=== PATIENT | female | born 1985 | race Caucasian/White ===

== ENCOUNTER 2019-09-21 13:21 | Observation (INO) | payer OTHER, BC, SELFPAY ==
--- NOTE | 2019-09-21 13:15 | PC.NURSE ---
Report called to KIRA Delcid in OB. Pt taken to OB department via Wheelchair by KIRA.
[2019-09-21 13:30] VITALS: BMI 36.9
[2019-09-21 13:45] VITALS: BP 116/76; PULSE 78
[2019-09-21 14:00] VITALS: BP 114/62; PULSE 90
[2019-09-21 14:06] LABS: Add Urine Microscopic? NO; Appearance Urine Clear (Clear); Bilirubin Urine Negative (Negative); Blood Urine Negative (Negative); Color Urine Straw (Yellow); Glucose Urine UA Negative (Negative); Ketones Urine Negative (Negative); Leukocyte Esterase Ur Negative LEU/UL (NEGATIVE); Nitrate Urine Negative (Negative); Protein Urine Negative (Negative); Urobilinogen Urine Negative mg/dL (<2.0)
[2019-09-21 14:15] VITALS: BP 109/70; PULSE 83
--- NOTE | 2019-09-21 14:53 | OBADM ---
This patient, Lisa Bailey, admitted to the OB room OB Post 116 for observation. Patient/family oriented to hospital policies and general routines including ID bracelet, bed and alarms, visiting hours, pain management, procedures, bathroom and other care routines, personal items, smoking policy, room service/diet, and visiting hours. Patient/Family are encouraged to report perceived risks to care and to ask questions if they do not understand what they are told or what they should do.
--- NOTE | 2019-09-25 06:32 | P.PNOB_ITS ---
OB - Triage/Final Diagnosis Evaluation Laboratory results: Laboratory Tests 09/21/19 13:56 Urine Color Straw Urine Appearance Clear Urine pH 7.0 Ur Specific [place] 1.010 Urine Protein Negative Urine Glucose (UA) Negative Urine Ketones Negative Ur Blood (Man) Negative Urine Nitrate Negative Urine Bilirubin Negative Urine Urobilinogen Negative Ur Leukocyte Esterase Negative Final Diagnosis (1) Musculoskeletal pain: Code(s): M79.18 - Myalgia, other site Status: Acute
== END 2019-09-21 14:50 | disposition home or self-care (01) ==
PROVIDERS: Admitting Provider Obstetrics & Gynecology; PCP Internal Medicine; Visit Provider Obstetrics & Gynecology
DX: O26.892 Other specified pregnancy related conditions, second trimester (principal); R10.9 Unspecified abdominal pain; Z3A.25 25 weeks gestation of pregnancy
CPT/HCPCS: 81003; 87086; 87088; G0378; G0379

== ENCOUNTER 2019-12-28 00:01 | Inpatient (IN) | payer OTHER, BC, SELFPAY ==
[2019-12-28] VITALS (115 sets, daily range): BP systolic 106–161; BP diastolic 45–129; PULSE 67–100; TEMP 36.7–37.4; O2SAT 97–100; BMI 39.2
--- NOTE | 2019-12-28 00:22 | LDADM ---
This patient, Lisa Bailey, was admitted to Labor/Delivery/Recovery 103 on 12/28/19 at 00:01. Plans for labor, pain management and were discussed with patient. Patient/family oriented to hospital policies and general routines including ID bracelet, bed and alarms, visiting hours, pain management, procedures, bathroom and other care routines, personal items, smoking policy, room service/diet and guest tray routines, security routines, and visiting hours. Patient/Family are encouraged to report perceived risks to care and to ask questions if they do not understand what they are told or what they should do. See OBIX for further documentation.
[2019-12-28] MEDS: DINOPROSTONE 10 MG VAG INSERT VAGINAL (00:50)
[2019-12-28 01:03] LABS: Glucose Point of Care 86 (65-105)
[2019-12-28 01:07] LABS: Basophils Percent Auto 0.2 % (0.2-1.2); Eosinophils Absolute Auto 0.1 K/mm3 (0-0.3); Eosinophils Percent Auto 0.8 % (0-4.4); Hematocrit 35.9 % (37.0-47.0); Hemoglobin 12.6 g/dL (12.0-15.0); Immature Granulocyte Absolute 0.03 K/mm3 (0.00-0.031); Immature Granulocyte Percent A 0.3 % (0-0.5); Lymphocytes Absolute Auto 2.22 K/mm3 (0.9-3.2); Lymphocytes Percent Auto 25.6 % (18.3-44.2); Mean Corpuscular HGB Conc 35.1 g/dl (32-36); Mean Corpuscular Hemoglobin 31.1 pg (26-34); Mean Corpuscular Volume 88.6 fl (80-100); Mean Platelet Volume 11.4 fl (7.4-10.4); Monocytes Absolute Auto 0.8 K/mm3 (0.1-0.6); Monocytes Percent Auto 8.8 % (2.6-8.5); Neutrophils Absolute Auto 5.6 K/mm3 (1.3-6.7); Neutrophils Percent Auto 64.3 % (45.5-73.1); Platelet Count Result 208 k/mm3 (150-375); Red Blood Count 4.05 M/mm3 (4.2-5.4); Red Cell Distribution Width 12.7 % (11.5-14.5); White Blood Count 8.7 K/mm3 (4.5-10.0)
[2019-12-28 03:23] LABS: Hepatitis B Surface Antigen Negative (Negative)
[2019-12-28 03:25] LABS: Rubella IgG Antibody 15.4 IU/ML
--- NOTE | 2019-12-28 06:59 | WPDANESEPP ---
Anes - Eval Pre Procedure Procedure: labor epidural Date/Time: 12/28/19 06:59 Preop Diagnosis: labor epidural Pre Op Diagnosis: IOL Patient Data Age: 34 Gender: F Height: 5 ft 9 in Weight: 120.5 kg Last Vital Signs Temp 36.8 C 12/28/19 04:41 Pulse 81 12/28/19 06:46 BP 128/89 12/28/19 06:46 Allergies Allergy/AdvReac Type Severity Reaction Status Date / Time No Known Allergies Allergy Verified 12/06/19 13:43 Home Medications Medication Instructions Recorded Confirmed Type enoxaparin [Lovenox] 1 09/21/19 History levothyroxine [Synthroid] 75 mcg PO DAILY 09/21/19 12/28/19 History biotin-keratin 1 tablet PO 12/06/19 History cholecalciferol (vitamin D3) 125 mcg PO DAILY 12/06/19 12/28/19 History [Vitamin D3] cyanocobalamin (vitamin B-12) 1,000 mcg PO DAILY 12/06/19 12/28/19 History [Vitamin B-12] folic acid 0.8 mg PO DAILY MDD TAKES 2 12/06/19 12/28/19 History TABLETS DAILY loratadine [Claritin] 10 mg PO DAILY 12/06/19 12/28/19 History metformin 500 mg PO DAILY 12/06/19 12/28/19 History ffhhiezokqrf-tvgo-jaqip acid 1 tablet PO DAILY 12/06/19 12/28/19 History [Daily Multivitamin with Iron] heparin, porcine (PF) 12/28/19 History Laboratory Tests 12/28/19 12/28/19 12/28/19 00:44 00:44 00:44 WBC 8.7 K/mm3 K/mm3 (4.5-10.0) RBC 4.05 M/mm3 L M/mm3 (4.2-5.4) Hgb 12.6 g/dL g/dL (12.0-15.0) Hct 35.9 % L % (37.0-47.0) MCV 88.6 fl fl (80-100) MCH 31.1 pg pg (26-34) MCHC 35.1 g/dl g/dl (32-36) RDW 12.7 % % (11.5-14.5) Plt Count 208 k/mm3 k/mm3 (150-375) MPV 11.4 fl H fl (7.4-10.4) Immature Gran % (Auto) 0.3 % % (0-0.5) Neut % (Auto) 64.3 % % (45.5-73.1) Lymph % (Auto) 25.6 % % (18.3-44.2) [place] % (Auto) 8.8 % H % (2.6-8.5) Eos % (Auto) 0.8 % % (0-4.4) Baso % (Auto) 0.2 % % (0.2-1.2) Lymph # (Auto) 2.22 K/mm3 K/mm3 (0.9-3.2) [place] # (Auto) 0.8 K/mm3 H K/mm3 (0.1-0.6) Eos # (Auto) 0.1 K/mm3 K/mm3 (0-0.3) Baso # (Auto) 0.0 K/mm3 K/mm3 (0.0-0.1) Abs Immat Gran (auto) 0.03 K/mm3 K/mm3 (0.00-0.031) Absolute Neuts (auto) 5.6 K/mm3 K/mm3 (1.3-6.7) Absolute Nucleated RBC 0.0 K/mm3 K/mm3 (0.0-0.012) Nucleated RBC % 0.0 % % (0.0-0.2) POC Capillary Glucose RPR Pending Hep Bs Antigen Rubella IgG Antibody 15.4 IU/ML IU/ML (10 - ) Blood Type Antibody Screen 12/28/19 12/28/19 12/28/19 00:44 00:44 00:47 WBC RBC Hgb Hct MCV MCH MCHC RDW Plt Count MPV Immature Gran % (Auto) Neut % (Auto) Lymph % (Auto) [place] % (Auto) Eos % (Auto) Baso % (Auto) Lymph # (Auto) [place] # (Auto) Eos # (Auto) Baso # (Auto) Abs Immat Gran (auto) Absolute Neuts (auto) Absolute Nucleated RBC Nucleated RBC % POC Capillary Glucose 86 mg/dl mg/dl (65-105) RPR Hep Bs Antigen Negative (Negative) Rubella IgG Antibody Blood Type A Positive Antibody Screen Negative Patient hx anesthesia problems: none Family hx anesthesia problems: none PMFSH Past Medical History Medical History (Updated 09/25/19 @ 06:33 by Reymundo Mosquera MD) Musculoskeletal pain Family History Family History (Updated 12/06/19 @ 13:58 by Anna Zurita RN) Father High cholesterol Hypertension Mother High cholesterol Hypertension Grandparent Cerebrovascular accident Social History Social History Smoking status: Never smoker
[2019-12-28 07:18] LABS: Glucose Point of Care 81 (65-105)
[2019-12-28 07:34] LABS: Alanine Aminotransferase 26 U/L (4-35); Albumin Level 3.4 g/dL (3.5-5.1); Alkaline Phosphatase 107 U/L (38-126); Anion Gap 5 mmol/L (8-16); Aspartate Amino Transferase 28 U/L (14-36); Bilirubin,Total 0.4 mg/dL (0.2-1.3); Blood Urea Nitrogen 10 mg/dL (7-17); Calcium 8.7 mg/dL (8.4-10.2); Carbon Dioxide 21 mmol/L (22-30); Chloride 105 mmol/L (98-107); Estimated CRCL calculation 157 ml/min; Estimated Glomerular Filt Rate > 60; Glucose 84 mg/dL (65-105); Potassium 3.9 mmol/L (3.4-5.0); Sodium 131 mmol/L (137-145); Uric Acid 5.7 mg/dL (2.5-7.5)
[2019-12-28 09:37] LABS: Rapid Plasma Reagin Non-Reactive (NonReactive)
[2019-12-28] MEDS: fentaNYL CITRATE INJ (*CRX) 100 MCG/2 ML VIAL 50 MCG IV PUSH (10:16)
[2019-12-28 11:19] LABS: Glucose Point of Care 83 (65-105)
[2019-12-28 13:00] LABS: Glucose Point of Care 61 (65-105)
[2019-12-28 14:13] LABS: Glucose Point of Care 120 (65-105)
--- NOTE | 2019-12-28 17:13 | WPDOBADMIT ---
Obstetrics - Admit Note Admission Note: patient c/70/ -2. continue with cytotec 25 q 4 hrs. record reviewed. No pertinent additions to the history and/or any subsequent changes in the physical findings that are not consistent with the expected course of the were found. Additions to the history and/or subsequent changes in the physical findings follow. None.
[2019-12-28] MEDS: miSOPROStol 25 MCG TABLET VAGINAL (18:13)
[2019-12-28 18:18] LABS: Glucose Point of Care 67 (65-105)
[2019-12-28] MEDS: LACTATED RINGERS 1,000 ML 125 ML IV CONT (22:57)
[2019-12-28 23:03] LABS: Glucose Point of Care 85 (65-105)
--- NOTE | 2019-12-28 23:03 | WPDANESEFPP ---
Anes - Eval Final PreProcedure Day of Procedure 12/28/19 23:03 Patient weight: morbidly obese Neurological: alert and oriented ASA classification: III Emergent: no Anesthetic plan: proceed Anesthesia type and monitoring: regional epidural and standard monitoring Informed Consent: The patient's anesthetic plan and its attendant risks and benefits were discussed with the patient/family/POA. Questions were solicited and answers provided to the satisfaction of the patient/family/POA.
[2019-12-29] VITALS (101 sets, daily range): BP systolic 122–154; BP diastolic 21–92; PULSE 67–119; RESP 12–18; TEMP 36.6–37.1; O2SAT 95–100
[2019-12-29 02:00] LABS: Glucose Point of Care 74 (65-105)
--- NOTE | 2019-12-29 07:02 | P.PCNOB_ITS ---
OB - Delivery Note Procedure Delivery date: 12/29/19 events: Gestational Diabetes and Labor Induction Induction method: per misoprostol protocol and other Delivery monitor: external FHT and external uterine Route of delivery: Laceration description: Perineal - 2nd Degree Delivery repair: vicryl Specimen: Yes Estimated blood loss (mL): 450 Anesthesia type: Epidural Disposition: observation [place] Baby Date of : 12/29/19 Time of : 06:23 Weeks of gestation at delivery: 39 Infant gender: Female Weight (pounds): 7 Weight (ounces): 14 presentation: vertex position: Left Occiput Anterior Placenta delivery description: Spontaneous cord vessel description: 3 Vessels score one minute: 8 score five minutes: 9
[2019-12-29] MEDS: OXYTOCIN 30 UNITS/NS 500 ML 30 UNITS/500 ML BAG 125 UNITS IV CONT (07:26)
[2019-12-29] MEDS: LEVOTHYROXINE SODIUM 75 MCG TABLET PO (07:29)
[2019-12-29] MEDS: WITCH HAZEL 40 PADS 1 PAD TOPICAL (08:27)
[2019-12-29] MEDS: BENZOCAINE 20% AER SPR (*SP) 56 GM CAN 1 SPRAY TOPICAL (08:27)
--- NOTE | 2019-12-29 09:43 | OBPPTRN ---
Patient transferred to post room # 291 via wheelchair. Support person present. Oriented to unit, room, information board, rooming in, admission packet and security measures. Patient verbalizes understanding.
--- NOTE | 2019-12-29 11:30 | PC.NURSE ---
Consulted with patient, mother reports infant eagerly fed for first feeding. Reviewed feeding cues, frequencies, duration of feedings, feeding elimination flow sheet, and signs of adequate intake. Demonstrated stimulation techniques to wake infant for feeding. Assisted with infant to breast. Reviewed positioning/alignment in football, holding breast in C hold and guided asymmetrical latch on. was able to latch correctly. nursed eagerly, with steady draws and frequent swallowing noted. Reviewed signs of a correct latch, effective nursing and suck swallow ratio. was able to maintain latch without discomfort to mother. Nipple care reviewed. Suggested mother stimulate while feeding to keep awake and nursing effectively for increased intake and to assist with maintaining deep latch. Demonstrated how to adjust latch more deeply while feeding. Instructed mother to call out for RN assistance if she is unable to latch infant for feeding or she has discomfort with nursing. Instructed feeding should be initiated three hours from start of last feeding or if feeding cues are noted before. Mother voiced understanding of information shared.
[2019-12-29 11:40] LABS: Glucose Point of Care 84 (65-105)
[2019-12-29] MEDS: IBUPROFEN 600 MG TABLET PO (14:56)
[2019-12-29] MEDS: ENOXAPARIN 40 MG/0.4 ML SYRINGE SUB-Q (19:19)
[2019-12-30 05:27] LABS: Hemoglobin 9.9 g/dL (12.0-15.0)
[2019-12-30] MEDS: IBUPROFEN 600 MG TABLET PO ×4 (07:23→22:57)
[2019-12-30] MEDS: LEVOTHYROXINE SODIUM 75 MCG TABLET PO (07:23)
[2019-12-30 08:30] VITALS: BP 118/76; PULSE 65; RESP 18; TEMP 36.7
--- NOTE | 2019-12-30 09:30 | PM.OBPNVD ---
OB - PN: Subj Subjective Date/time seen: 12/30/19 09:30 Doing okay mild headache improved with ibuprofen and fiorocet OB - PN: Obj Data Labs CBC & Chem 7: 12/30/19 03:36 12/28/19 07:12 Labs: Laboratory Results - last 24 hr 12/29/19 12/30/19 03:03 03:36 Hgb 9.9 L Hct 30.0 L POC Capillary Glucose 84 OB - PN A/P Assessment and Plan (1) (normal spontaneous vaginal delivery): Code(s): O80 - Encounter for full-term uncomplicated delivery Status: Acute Assessment and Plan: doing okay no complaints (2) History of DVT of lower extremity: Code(s): Z86.718 - Personal history of other venous thrombosis and embolism Status: Acute Assessment and Plan: continue with lovenox daily (3) Hypothyroid: Code(s): E03.9 - Hypothyroidism, unspecified Status: Acute Time Spent With Patient Time: Total time spent is greater than 50% in coordination of care (as documented) at patient's floor/unit and/or counseling patient: Exam GI: Other: ff below umbilicus no calf tenderness bilateral edema
[2019-12-30] MEDS: MULTIVIT/MIN/PREN/FOL AC/IRON TABLET 1 TAB PO (10:10)
[2019-12-30] MEDS: DOCUSATE SODIUM 100 MG CAPSULE PO ×2 (10:11→16:38)
[2019-12-30] MEDS: POLYSACCHARIDE IRON COMPLEX 150 MG CAPSULE PO ×2 (10:11→16:38)
--- NOTE | 2019-12-30 10:54 | WPDANLDPN2 ---
Anes-Prog Note L&D Date/Time: 12/30/19 10:54 Comfortable throughout: labor and delivery Neuraxial method: epidural Epidural/Spinal procedure site: clean & non-tender Neuro status: Neuro function grossly intact. Cardiovascular status: normal Respiratory status: normal Airway patency: baseline Mental status: baseline Post-Op hydration status: normal Vital Signs: Last Vital Signs Temp 36.7 C 12/30/19 08:30 Pulse 65 12/30/19 08:30 Resp 18 12/30/19 08:30 BP 118/76 12/30/19 08:30 Pulse Ox 98 12/29/19 09:50 Pain score (VAS): o/o Post-procedural complaints: none Patient feedback: Patient satisfied with anesthetic care.
[2019-12-30] MEDS: ENOXAPARIN 40 MG/0.4 ML SYRINGE SUB-Q (19:11)
[2019-12-30 19:15] VITALS: BP 140/80; PULSE 82; RESP 16; TEMP 37.2
[2019-12-31] MEDS: LEVOTHYROXINE SODIUM 75 MCG TABLET PO (07:30)
[2019-12-31 07:45] VITALS: BP 151/90; PULSE 62; RESP 18; TEMP 36.3
[2019-12-31] MEDS: DOCUSATE SODIUM 100 MG CAPSULE PO (07:46)
[2019-12-31] MEDS: POLYSACCHARIDE IRON COMPLEX 150 MG CAPSULE PO (07:46)
[2019-12-31] MEDS: IBUPROFEN 600 MG TABLET PO (07:46)
[2019-12-31] MEDS: MULTIVIT/MIN/PREN/FOL AC/IRON TABLET 1 TAB PO (07:46)
--- NOTE | 2019-12-31 09:56 | PM.OBPNVD ---
OB - PN: Subj Subjective Date/time seen: 12/31/19 09:56 doing well headaches improved no calf pain bleeding improve OB - PN: Obj Data Labs CBC & Chem 7: 12/30/19 03:36 12/28/19 07:12 OB - PN A/P Assessment and Plan (1) (normal spontaneous vaginal delivery): Code(s): O80 - Encounter for full-term uncomplicated delivery Status: Acute Assessment and Plan: bps labile check pih labs. if normal will d/c home with bp check in 1 week. Time Spent With Patient Time: Total time spent is greater than 50% in coordination of care (as documented) at patient's floor/unit and/or counseling patient: Exam GI: Other: ff below umbiilicus
[2019-12-31 10:25] LABS: Basophils Percent Auto 0.3 % (0.2-1.2); Eosinophils Absolute Auto 0.2 K/mm3 (0-0.3); Eosinophils Percent Auto 1.9 % (0-4.4); Hematocrit 29.6 % (37.0-47.0); Hemoglobin 9.8 g/dL (12.0-15.0); Immature Granulocyte Absolute 0.06 K/mm3 (0.00-0.031); Immature Granulocyte Percent A 0.6 % (0-0.5); Lymphocytes Absolute Auto 1.69 K/mm3 (0.9-3.2); Lymphocytes Percent Auto 17.6 % (18.3-44.2); Mean Corpuscular HGB Conc 33.1 g/dl (32-36); Mean Corpuscular Hemoglobin 29.5 pg (26-34); Mean Corpuscular Volume 89.2 fl (80-100); Mean Platelet Volume 10.1 fl (7.4-10.4); Monocytes Absolute Auto 0.6 K/mm3 (0.1-0.6); Neutrophils Absolute Auto 7.1 K/mm3 (1.3-6.7); Neutrophils Percent Auto 73.6 % (45.5-73.1); Platelet Count Result 170 k/mm3 (150-375); Red Blood Count 3.32 M/mm3 (4.2-5.4); White Blood Count 9.6 K/mm3 (4.5-10.0)
[2019-12-31 10:38] LABS: Potassium 3.9 mmol/L (3.4-5.0)
[2019-12-31 10:42] LABS: Alanine Aminotransferase 21 U/L (4-35); Alkaline Phosphatase 64 U/L (38-126); Anion Gap 5 mmol/L (8-16); Aspartate Amino Transferase 27 U/L (14-36); Bilirubin,Total 0.2 mg/dL (0.2-1.3); Blood Urea Nitrogen 9 mg/dL (7-17); Calcium 8.5 mg/dL (8.4-10.2); Carbon Dioxide 27 mmol/L (22-30); Chloride 107 mmol/L (98-107); Estimated CRCL calculation 137 ml/min; Estimated Glomerular Filt Rate > 60; Glucose 101 mg/dL (65-105); Sodium 139 mmol/L (137-145); Uric Acid 6.1 mg/dL (2.5-7.5)
[2019-12-31 11:25] VITALS: BP 148/91
[2020-01-03 08:40] VITALS: BP 149/94; PULSE 66; RESP 20; O2SAT 98
--- NOTE | 2020-01-10 16:31 | PM.OBDSVD ---
DS: Admitting Diagnosis Admitting Diagnosis Admitting Diagnosis: IOL DS: Discharge Diagnosis Discharge Diagnosis (1) (normal spontaneous vaginal delivery): Code(s): O80 - Encounter for full-term uncomplicated delivery Status: Acute (2) History of DVT of lower extremity: Code(s): Z86.718 - Personal history of other venous thrombosis and embolism Status: Acute (3) Hypothyroid: Code(s): E03.9 - Hypothyroidism, unspecified Status: Acute OB - DS: Summary OB Procedures : NST and Ultrasound OB Procedures Intrapartum: Spontaneous Vag Delivery OB Procedures: : None Peripartum Data Infant Delivery Method: Natural Vaginal Laceration description: Perineal - 2nd Degree Episiotomy description: None complications: none Status at Discharge Functional status at discharge: independent ambulation Overall status at discharge: patient is progressing back to baseline Time Spent with Patient Time attestation: Total time spent providing and/or coordinating discharge services: Time spent: Less than 30 minutes Exam Const: General: comfortable GI: GI Palp: Yes Soft to palpation DS: Data Data Completed and Pending Completed studies during hospitalization: Pending at discharge 12/29/19 07:59 Surgical [PTH] Routine Discharge Plan Discharge Attending physician on discharge: Reymundo Mosquera Discharging Clinician: Reymundo Mosquera Patient Disposition: Home, Self-Care Activity: may shower and pelvic rest Diet: regular Discharge Instructions: Education: Mom and Baby Guide Given to: Mother Follow-Up: Call your delivering provider's office for an appointment to be seen in: 1 Week Mom and baby [facility] for the follow-up appointment. Appointment Date/Time: January 03, 2020 at 8:00 am What to expect at your follow-up visit: Blood Pressure Check Physical Assessment Call [phone] if you are unable to keep your appointment time. BREAST CARE: * Wear a snug supportive bra. * For engorgement discomfort: Breast Feeding: * Apply warm moist washcloths * Express milk as needed to relieve engorgement * Wear loose clothing Bottle Feeding: * May apply ice packs * For sore nipples: * Identify correct latch-on * Apply warm moist washcloths before and after nursing * Air dry nipples after nursing * May apply Lansinoh cream to nipples EPISIOTOMY/PERINEAL CARE: * Until bleeding stops, use your kenyon bottle after urinating * Change your pad frequently throughout the day * You may take sitz baths several times a day (fill your bathtub with warm water and soak for 20 minutes.) Do NOT bathe in the water * No tub baths until seen by your physician - You may shower ACTIVITY: * Rest as much as possible. * Do not exercise or lift anything heavier than your baby (such as laundry or other children.) * Avoid stairs or driving as much as possible. * Do not put anything into the vagina. No douching, tampons, or sexual activity until seen by physician. NOTIFY PHYSICIAN IF YOU HAVE ANY QUESTIONS OR IF ANY OF THE FOLLOWING SYMPTOMS OCCUR: * If your episiotomy or incision becomes red, swollen, or more painful than what you have experienced in the hospital. * If your vaginal bleeding becomes foul smelling. * If your vaginal bleeding becomes more heavy than a period or if your bleeding changes from pink to bright red. However, you may pass an occasional walnut-sized clot once or twice for the first week . * If you experience a sharp, shooting pain in you calves. * If you discover a hard, reddened area on your breast or if you experience flu-like symptoms. DIET: * Eat regular, well-balanced meals. * Drink plenty of fluids daily. If , drink to thirst. Stand Alone Forms: General Discharge Information
== END 2019-12-31 14:03 | disposition home or self-care (01) | DRG 807 ==
LOC: ANHLDR 00:40 → ANHOB2 12-29 09:47
PROVIDERS: Admitting Provider Obstetrics & Gynecology; PCP Internal Medicine; Visit Provider Obstetrics & Gynecology
DX: O24.424 Gestational diabetes mellitus in childbirth, insulin controlled (principal); Z37.0 Single live birth; Z3A.39 39 weeks gestation of pregnancy; O36.8330 Maternal care for abnormalities of the fetal heart rate or rhythm, third trimester, not applicable or unspecified; O77.0 Labor and delivery complicated by meconium in amniotic fluid; O99.214 Obesity complicating childbirth; E66.01 Morbid (severe) obesity due to excess calories; O70.1 Second degree perineal laceration during delivery; O99.284 Endocrine, nutritional and metabolic diseases complicating childbirth; E03.9 Hypothyroidism, unspecified; Z86.718 Personal history of other venous thrombosis and embolism
CPT/HCPCS: 36415; 80053; 84550; 85014; 85018; 85025; 86592; 86762; 86850; 86900; 86901; 87340; 88307; A9270; J1650; J2590; J2795; J3010; J7120

== ENCOUNTER 2020-01-05 17:17 | Observation (INO) | payer OTHER, BC, SELFPAY ==
[2020-01-05] VITALS (64 sets, daily range): BP systolic 136–175; BP diastolic 72–113; PULSE 54–129; RESP 18; TEMP 36.7–37.2; O2SAT 89–100; BMI 37.0
[2020-01-05 11:49] LABS: Basophils Absolute Auto 0.1 K/mm3 (0.0-0.1); Basophils Percent Auto 0.6 % (0.2-1.2); Eosinophils Absolute Auto 0.3 K/mm3 (0-0.3); Eosinophils Percent Auto 3.3 % (0-4.4); Hematocrit 34.1 % (37.0-47.0); Hemoglobin 11.4 g/dL (12.0-15.0); Immature Granulocyte Absolute 0.17 K/mm3 (0.00-0.031); Immature Granulocyte Percent A 2.1 % (0-0.5); Lymphocytes Absolute Auto 1.94 K/mm3 (0.9-3.2); Lymphocytes Percent Auto 24.3 % (18.3-44.2); Mean Corpuscular HGB Conc 33.4 g/dl (32-36); Mean Corpuscular Hemoglobin 30.2 pg (26-34); Mean Corpuscular Volume 90.5 fl (80-100); Mean Platelet Volume 9.5 fl (7.4-10.4); Monocytes Absolute Auto 0.5 K/mm3 (0.1-0.6); Monocytes Percent Auto 6.3 % (2.6-8.5); Neutrophils Absolute Auto 5.1 K/mm3 (1.3-6.7); Neutrophils Percent Auto 63.4 % (45.5-73.1); Platelet Count Result 315 k/mm3 (150-375); Red Blood Count 3.77 M/mm3 (4.2-5.4); Red Cell Distribution Width 12.6 % (11.5-14.5)
[2020-01-05 12:01] LABS: Alanine Aminotransferase 45 U/L (4-35); Albumin Level 3.6 g/dL (3.5-5.1); Alkaline Phosphatase 79 U/L (38-126); Anion Gap 5 mmol/L (8-16); Aspartate Amino Transferase 27 U/L (14-36); Bilirubin,Total 0.2 mg/dL (0.2-1.3); Blood Urea Nitrogen 14 mg/dL (7-17); Calcium 9.2 mg/dL (8.4-10.2); Carbon Dioxide 25 mmol/L (22-30); Chloride 107 mmol/L (98-107); Estimated Glomerular Filt Rate > 60; Glucose 87 mg/dL (65-105); Potassium 4.3 mmol/L (3.4-5.0); Sodium 137 mmol/L (137-145); Uric Acid 6.1 mg/dL (2.5-7.5)
--- NOTE | 2020-01-05 12:08 | PC.NURSE ---
Dr. Mosquera informed of BP's and lab results. Order received.
[2020-01-05] MEDS: LABETALOL HCL 100 MG TABLET 200 MG PO (12:18)
--- NOTE | 2020-01-05 12:46 | PC.NURSE ---
BP 170/96- baby just had an explosive diaper change
--- NOTE | 2020-01-05 13:19 | PC.NURSE ---
Dr. Mosquera updated on BP's 1 hour after Labetalol. Order received for Procardia XL.
[2020-01-05] MEDS: NIFEdipine 30 MG TAB.ER.24 PO ×2 (13:30→21:57)
--- NOTE | 2020-01-05 14:06 | PC.NURSE ---
Dr. Mosquera on unit and updated on BP's.
--- NOTE | 2020-01-05 15:50 | PC.NURSE ---
Dr. Mosquera updated on BP's. Order received for discharge.
--- NOTE | 2020-01-05 17:17 | PC.NURSE ---
Dr. Mosquera notified of BP's 160-170's over 90's to low 100's since DC order was received. Fioricet just given for worsening headache of 4 out of 10. Discharge cancelled and order received for Magnesium Sulfate.
[2020-01-05] MEDS: MAGNESIUM SULF 4 GM/WATER100ML 4 GM/100 ML BAG IVPB (18:00)
[2020-01-05] MEDS: LACTATED RINGERS 1,000 ML 75 ML IV CONT (18:00)
[2020-01-05] MEDS: MAGNESIUM SULF 20GM/WATER500ML 500 ML 50 MG IV CONT (18:30)
[2020-01-05] MEDS: ENOXAPARIN 40 MG/0.4 ML SYRINGE SUB-Q (20:54)
[2020-01-05] MEDS: IBUPROFEN 600 MG TABLET PO (23:29)
[2020-01-06] VITALS (15 sets, daily range): BP systolic 127–155; BP diastolic 85–101; PULSE 76–103; RESP 14–15; TEMP 36.6–37.2; O2SAT 96–99
[2020-01-06] MEDS: MAGNESIUM SULF 20GM/WATER500ML 500 ML 50 MG IV CONT ×2 (02:42→12:24)
[2020-01-06] MEDS: IBUPROFEN 600 MG TABLET PO ×2 (07:11→14:58)
[2020-01-06] MEDS: LEVOTHYROXINE SODIUM 75 MCG TABLET PO (07:11)
[2020-01-06] MEDS: LACTATED RINGERS 1,000 ML 75 ML IV CONT (07:16)
[2020-01-06] MEDS: NIFEdipine 30 MG TAB.ER.24 PO (10:05)
[2020-01-06 10:36] LABS: Alanine Aminotransferase 46 U/L (4-35); Albumin Level 3.8 g/dL (3.5-5.1); Alkaline Phosphatase 97 U/L (38-126); Anion Gap 8 mmol/L (8-16); Aspartate Amino Transferase 30 U/L (14-36); Bilirubin,Total 0.3 mg/dL (0.2-1.3); Blood Urea Nitrogen 10 mg/dL (7-17); Calcium 7.7 mg/dL (8.4-10.2); Carbon Dioxide 27 mmol/L (22-30); Chloride 103 mmol/L (98-107); Estimated CRCL calculation 133 ml/min; Estimated Glomerular Filt Rate > 60; Glucose 90 mg/dL (65-105); Potassium 4.4 mmol/L (3.4-5.0); Sodium 138 mmol/L (137-145)
[2020-01-06] MEDS: LABETALOL HCL 100 MG TABLET PO (11:05)
--- NOTE | 2020-01-06 11:56 | PM.IMHP ---
H&P: HPI History of Present Illness Date/Time: 01/06/20 11:56 Chief complaint: PP Hip Narrative: Lisa Bailey is a 34 year old [id number] status post a normal spontaneous vaginal delivery. Patient presented to the office for blood pressure check noted to have elevated blood pressure of 160/100 and with while headache. Patient to Labor and delivery for evaluation patient blood pressures were elevated. Review of Systems Review of Systems: Narrative: headache PMFSH Past Medical History Medical History History of DVT of lower extremity Hypothyroid Musculoskeletal pain Family History Family History Father High cholesterol Hypertension Mother High cholesterol Hypertension Grandparent Cerebrovascular accident Social History Social History Smoking status: Never smoker Second hand tobacco smoke exposure: No Substance use: never Spiritual care concerns: No Meds Home Medications and Allergies Home Medications Medication Instructions Recorded Confirmed Type enoxaparin [Lovenox] 40 mg SUBCUT DAILY 09/21/19 01/05/20 History levothyroxine [Synthroid] 75 mcg PO DAILY 09/21/19 01/05/20 History Daily Multivitamin with Iron 1 tablet PO DAILY 12/06/19 01/05/20 History biotin-keratin 1 tablet PO DAILY 12/06/19 01/05/20 History cholecalciferol (vitamin D3) 125 mcg PO DAILY 12/06/19 01/05/20 History [Vitamin D3] cyanocobalamin (vitamin B-12) 1,000 mcg PO DAILY 12/06/19 01/05/20 History [Vitamin B-12] folic acid 0.8 mg PO DAILY MDD TAKES 2 12/06/19 01/05/20 History TABLETS DAILY loratadine [Claritin] 10 mg PO DAILY 12/06/19 01/05/20 History qbycrftpxs-ltkmgwuaztkkn-szgh 2 cap PO Q4H PRN #30 cap 12/31/19 01/05/20 Rx [Fioricet] ibuprofen 600 mg PO Q6H PRN #60 tablet 12/31/19 01/05/20 Rx nifedipine 30 mg PO DAILY #30 tablet 01/05/20 Rx Allergies Allergy/AdvReac Type Severity Reaction Status Date / Time No Known Allergies Allergy Verified 12/06/19 13:43 Vital Signs Vital Signs - 24 hr 01/05/20 12:01 01/05/20 12:16 01/05/20 12:18 Temperature Pulse Rate 57 L 60 60 Respiratory Rate Blood Pressure 155/89 H 150/107 H Pulse Oximetry 01/05/20 12:31 01/05/20 12:46 01/05/20 13:01 Temperature Pulse Rate 55 L 62 61 Respiratory Rate Blood Pressure 164/106 H 170/96 H 167/94 H Pulse Oximetry 01/05/20 13:16 01/05/20 13:31 01/05/20 14:01 Temperature 36.7 C Pulse Rate 56 L 62 75 Respiratory Rate 18 Blood Pressure 162/101 H 172/96 H 136/72 Pulse Oximetry 01/05/20 14:31 01/05/20 15:01 01/05/20 15:31 Temperature Pulse Rate 129 H 60 59 L Respiratory Rate Blood Pressure 136/75 151/89 H 169/94 H Pulse Oximetry 01/05/20 15:47 01/05/20 16:01 01/05/20 16:31 Temperature Pulse Rate 58 L 62 57 L Respiratory Rate Blood Pressure 149/97 H 154/94 H 167/98 H Pulse Oximetry 01/05/20 17:01 01/05/20 17:15 01/05/20 17:31 Temperature Pulse Rate 59 L 54 L 64 Respiratory Rate Blood Pressure 171/101 H 175/92 H 171/104 H Pulse Oximetry 01/05/20 17:58 01/05/20 18:00 01/05/20 18:03 Temperature 37.2 C Pulse Rate 58 L Respiratory Rate 18 Blood Pressure 165/94 H 165/94 H Pulse Oximetry 99 99 99 01/05/20 18:08 01/05/20 18:13 01/05/20 18:16 Temperature Pulse Rate 65 Respiratory Rate Blood Pressure 144/98 H Pulse Oximetry 98 99 01/05/20 18:18 01/05/20 18:23 01/05/20 18:28 Temperature Pulse Rate Respiratory Rate Blood Pressure Pulse Oximetry 98 98 98 01/05/20 18:31 01/05/20 18:33 01/05/20 18:38 Temperature Pulse Rate 67 Respiratory Rate Blood Pressure 147/93 H Pulse Oximetry 98 100 01/05/20 18:43 01/05/20 18:48 01/05/20 18:53 Temperature Pulse Rate Respiratory Rate Blood Pressure Puls
--- NOTE | 2020-01-06 17:36 | PC.NURSE ---
1728--Reported BP's from throughout the day to Dr. Mosquera. Orders to DC magnesium and IVF and DC home after an hour.
--- NOTE | 2020-01-06 17:39 | PC.NURSE ---
1730--IV to saline lock at this time.
== END 2020-01-06 18:54 | disposition home or self-care (01) ==
LOC: ANHOBOP 17:44 → ANHOBPP 17:44
PROVIDERS: Admitting Provider Obstetrics & Gynecology; PCP Internal Medicine; Visit Provider Obstetrics & Gynecology
DX: O14.95 Unspecified pre-eclampsia, complicating the puerperium (principal); Z86.718 Personal history of other venous thrombosis and embolism; E03.9 Hypothyroidism, unspecified
CPT/HCPCS: 36415; 80053; 84550; 85025; 96365; 96366; 96372; A9270; G0378; G0379; J1650; J3475; J7120

== ENCOUNTER → 2021-04-03 15:25 | Outpatient (CLI) | payer OTHER, BC, SELFPAY ==
--- NOTE | ~2021-04-03 | US_ITS ---
EXAMINATION: US transvaginal DATE: 04/03/2021 15:41 INDICATION: Spotting. First trimester . TECHNIQUE: Real-time transvaginal pelvic ultrasound was performed. COMPARISON: None. FINDINGS: The uterus measures 10.7 x 6.3 x 7.3 cm. There is an intrauterine gestational sac. A yolk sac is iden tified. The crown rump length measures 9 mm, which correlates with an estimated gestational ag e of 6 weeks and 6 day(s) (+/-) 4 day(s). heart motion is not identified. The ovaries are not v isualized. There is no free fluid in the pelvis. IMPRESSION: 1. demise. Reviewed, dictated and finalized at location B. [facility] IMPRESSION: 1. demise.
== END ==
PROVIDERS: Visit Provider Obstetrics & Gynecology
DX: O02.1 Missed abortion (principal); Z3A.00 Weeks of gestation of pregnancy not specified
CPT/HCPCS: 76830

== ENCOUNTER 2021-09-11 13:49 | Outpatient (CLI) | payer OTHER, BC, SELFPAY ==
--- NOTE | ~2021-09-11 | US_ITS ---
US OB transvaginal DATE: 09/11/2021 14:15 INDICATION: patient with history of miscarriage TECHNIQUE: Real-time imaging via transvaginal approach COMPARISON: 04/03/2021 transvaginal pelvic ultrasound: demise was reported FINDINGS: The uterus measures 12.6 cm height, 7.2 cm anteroposterior and 9.2 cm transverse dimension. An intrauterine gestational sac is identified. pole is noted, with cardiac motion, heart rate of 149 bpm. [place]-rump length measurement averages 0.70 cm, consistent with 6 weeks 4 days estimated gestational age +/- 4 days, with SEHRRI of 05/03/2022. Small subchorionic hematomas measuring 1.3 x 0.7 x 1.5 cm and 1.3 x 0.7 x 1.1 cm. Fibroids are noted measuring 5.2 x 4.2 x 4.4 cm and 2.7 x 2.6 x 2.8 cm. Right ovary measures 2.5 x 1.5 x 2.5 cm. Left ovary measures 2.4 x 1.9 x 2.3 cm. Very small amount of fluid is noted in the posterior cul-de-sac which may be physiologic. IMPRESSION: Live [place]avier intrauterine gestation, estimated gestational age 6 weeks 4 days +/- 4 day s, with SHERRI of 05/03/2022 Small subchorionic hematomas Uterine fibroids Reviewed, dictated and finalized at Location A. Reviewed, dictated and finalized at location A. IMPRESSION: Live [place] intrauterine gestation, estimated gestational age 6 weeks 4 days +/- 4 days, with SHERRI of 05/03/2022 Small subchorionic hematomas Uterine fibroids
== END 2021-09-11 13:50 ==
PROVIDERS: PCP Internal Medicine; Visit Provider Obstetrics & Gynecology Gynecology
DX: O26.21 Pregnancy care for patient with recurrent pregnancy loss, first trimester (principal); Z3A.01 Less than 8 weeks gestation of pregnancy
CPT/HCPCS: 76817

== ENCOUNTER → 2021-09-25 13:11 | Outpatient (CLI) | payer OTHER, BC, SELFPAY ==
--- NOTE | ~2021-09-25 | US_ITS ---
EXAMINATION: US OB limited DATE: 09/25/2021 13:35 INDICATION: Subchorionic hematoma TECHNIQUE: Real-time pelvic ultrasound utilizing transabdominal probe was performed. The interpretin g radiologist was not present for the study. COMPARISON: 09/21/2021 FINDINGS: The uterus measures 14.1 x 6.6 x 9.3 cm. There is an intrauterine gestational sac. A yolk sac and fe cristy pole are identified. heart motion is identified measuring 181 beats per minute (bpm) by M-m ode Doppler. 1.6 x 1.5 x 1.1 cm hypoechoic subchorionic hematoma along the left side of the gestation al sac. A few small shadowing calcifications along the periphery of a 5.0 x 4.6 x 4.4 cm hypoechoic u terine fibroid at the right side of the uterine fundus. The ovaries are not visualized. There is no f ree fluid in the pelvis. IMPRESSION: 1. Single living fetus with heart rate of 181 bpm. 2. No significant change in a 1.6 x 1.5 x 1.1 cm subchorionic hematoma. 3. 5 cm uterine fibroid. Reviewed, dictated and finalized at location B.
== END ==
PROVIDERS: PCP Obstetrics & Gynecology Gynecology; Visit Provider Obstetrics & Gynecology Gynecology
DX: O36.8910 Maternal care for other specified fetal problems, first trimester, not applicable or unspecified (principal); O26.21 Pregnancy care for patient with recurrent pregnancy loss, first trimester; Z3A.00 Weeks of gestation of pregnancy not specified; D25.9 Leiomyoma of uterus, unspecified
CPT/HCPCS: 76815

== ENCOUNTER → 2021-10-15 13:44 | Outpatient (CLI) | payer OTHER, BC, SELFPAY ==
--- NOTE | ~2021-10-15 | US_ITS ---
EXAMINATION: US OB limited DATE: 10/15/2021 14:04 INDICATION: Subchorionic hematoma TECHNIQUE: Real-time transabdominal obstetric ultrasound. FINDINGS: Ultrasound dated 09/25/2021 The uterus measures 14.8 x 8.9 x 2.7 cm. There is an intrauterine gestational sac, with pole id entified. . heart tones are identified measuring 171 BPM. There is a residual subchorionic h emorrhage measuring 1.7 x 1.2 x 0.8 cm. There is calcified uterine fibroid measuring up to 4.6 cm. Th ere is a bandlike structure involving the gestational sac which is nonspecific. Recommend attention t o this on subsequent examination. IMPRESSION: 1. Small residual subchorionic hemorrhage without significant change. 2: Bandlike structure involving the gestational sac which is nonspecific. Consider chorioamnionic se paration, synechia and amniotic band. Recommend attention to this on subsequent examination. Reviewed, dictated and finalized at location A. IMPRESSION: 1. Small residual subchorionic hemorrhage without significant change. 2: Bandlike structure involving the gestational sac which is nonspecific. Cons ider chorioamnionic separation, synechia and amniotic band. Recommend attention to this on subsequent examination.
== END ==
PROVIDERS: PCP Internal Medicine; Visit Provider Obstetrics & Gynecology Gynecology
DX: O36.8910 Maternal care for other specified fetal problems, first trimester, not applicable or unspecified (principal); D25.9 Leiomyoma of uterus, unspecified; Z3A.12 12 weeks gestation of pregnancy
CPT/HCPCS: 76815

== ENCOUNTER → 2021-11-14 12:50 | Outpatient (CLI) | payer OTHER, BC, SELFPAY ==
--- NOTE | ~2021-11-14 | US_ITS ---
US OB limited 11/14/2021 13:25 Indication: Follow-up subchorionic hematoma. Procedure: High-resolution Limited obstetrical ultrasound Comparison: Ultrasound dated 10/15/2021 Findings: There is a single living intrauterine in breech presentation. heart rate is 156 BPM. Amniotic fluid is subjectively normal. There is a small residual subchorionic hematoma joselo uring 3.5 x 0.8 x 1.7 cm. There is a uterine fibroid measuring 5.1 x 3.5 x 4.8 cm. There is a small p replacental hypoechoic structure measuring 2.7 x 1.6 x 1.8 cm inferiorly to the left, possibly anothe r subchorionic hemorrhage. Impression: 1: Single living intrauterine in breech presentation. 2: Anterior placenta measuring 2.7 cm to the cervix. 3: Persistent subchorionic hemorrhage measuring 3.5 x 0.8 x 1.7 cm. Possible small preplacental hemor rhage measuring 2.7 x 1.6 x 1.8 cm. 4: Uterine fibroid measuring 5.1 x 3.5 x 4.8 cm. Reviewed, dictated and finalized at location A. Impression: 1: Single living intrauterine in breech presentation. 2: Anterior placenta measuring 2.7 cm to the cervix. 3: Persistent subchorionic hemorrhage measuring 3.5 x 0.8 x 1.7 cm. Possible sm all preplacental hemorrhage measuring 2.7 x 1.6 x 1.8 cm. 4: Uterine fibroid measuring 5.1 x 3.5 x 4.8 cm.
== END ==
PROVIDERS: PCP Advanced Practice Midwife; Visit Provider Advanced Practice Midwife
DX: O36.8910 Maternal care for other specified fetal problems, first trimester, not applicable or unspecified (principal); Z3A.00 Weeks of gestation of pregnancy not specified; D25.9 Leiomyoma of uterus, unspecified
CPT/HCPCS: 76815

== ENCOUNTER 2021-12-17 18:02 | Emergency (ER) | payer OTHER, BC, SELFPAY ==
[2021-12-17 18:15] VITALS: BP 132/88; PULSE 104; RESP 14; TEMP 36.9; O2SAT 100
--- NOTE | 2021-12-17 20:02 | ECG_ITS ---
Measurements Intervals [place] Rate: 94 P: 29 CT: 153 QRS: 45 QRSD: 91 T: -9 QT: 347 QTc: 436 Interpretive Statements SINUS RHYTHM WITH SINUS ARRHYTHMIA NONSPECIFIC T-WAVE ABNORMALITY- INFERIOR LEADS BORDERLINE ECG NO PREVIOUS ECG AVAILABLE FOR COMPARISON Electronically Signed On 12-17-2021 21:35:30 CDT by Melo Acuna D.O.
[2021-12-17 20:21] LABS: Basophils Percent Auto 0.3 % (0.2-1.2); Eosinophils Absolute Auto 0.1 K/mm3 (0-0.3); Eosinophils Percent Auto 0.6 % (0-4.4); Hematocrit 37.8 % (37.0-47.0); Hemoglobin 12.8 g/dL (12.0-15.0); Immature Granulocyte Absolute 0.09 K/mm3 (0.00-0.031); Immature Granulocyte Percent A 0.8 % (0-0.5); Lymphocytes Absolute Auto 2.81 K/mm3 (0.9-3.2); Mean Corpuscular HGB Conc 33.9 g/dl (32-36); Mean Corpuscular Hemoglobin 30.4 pg (26-34); Mean Corpuscular Volume 89.8 fl (80-100); Mean Platelet Volume 9.6 fl (7.4-10.4); Monocytes Absolute Auto 0.7 K/mm3 (0.1-0.6); Monocytes Percent Auto 5.8 % (2.6-8.5); Neutrophils Percent Auto 68.5 % (45.5-73.1); Platelet Count Result 249 k/mm3 (150-375); Red Blood Count 4.21 M/mm3 (4.2-5.4); White Blood Count 11.7 K/mm3 (4.5-10.0)
[2021-12-17 20:31] LABS: Alanine Aminotransferase 25 U/L (6-35); Alkaline Phosphatase 36 U/L (38-126); Anion Gap 11 mmol/L (8-16); Aspartate Amino Transferase 23 U/L (14-36); Bilirubin,Total 0.3 mg/dL (0.2-1.3); Blood Urea Nitrogen 7 mg/dL (7-17); Calcium 9.3 mg/dL (8.4-10.2); Carbon Dioxide 20 mmol/L (22-30); Chloride 105 mmol/L (98-107); Estimated CRCL calculation 148 ml/min; Estimated Glomerular Filt Rate > 60; Glucose 95 mg/dL (65-110); Potassium 3.8 mmol/L (3.4-5.0); Sodium 136 mmol/L (137-145)
--- NOTE | 2021-12-17 21:40 | PC.NURSE ---
Pt came up to nurse intake desk stating. My anxiety is going through the roof. What are you guys even doing. RN explained to pt the process of getting pt checked in and running protocol test due to no rooms being open. Pt stated What are even the results of my test no one will tell me anything. RN explained that she is waiting to go back to a room where a provider will see her and go over all of her test results. Pt states you guys do not even care about me. Better hope to god I dont have a PE. RN explained that we see patients based off acuity. Pt stated You guys should be careful what you say up there. I heard the marlo so I was fine and didnt need anything. See I dont matter. RN apologized for the weight and explained how we were trying our best to take care of her in [facility] till she had a room. Explained that she overheard report and that the other nurse was saying that her vital signs were normal and she did not need a room immedialely based off acuity. Pt stated forget it I am leaving and walked out.
== END 2021-12-17 21:40 | disposition left against medical advice (07) ==
PROVIDERS: Emergency Provider Emergency Medicine; PCP Advanced Practice Midwife
DX: R06.02 Shortness of breath (principal)
CPT/HCPCS: 36415; 80053; 85025; 93005; 99199

== ENCOUNTER 2022-04-23 17:07 | Inpatient (IN) | payer OTHER, BC, SELFPAY ==
[2022-04-23] MEDS: DINOPROSTONE 10 MG VAG INSERT VAGINAL (17:47)
--- NOTE | 2022-04-23 17:55 | LDADM ---
This patient, Lisa Bailey, was admitted to Labor/Delivery/Recovery 109 on 04/23/22 at 17:07. Plans for labor, pain management and were discussed with patient. Patient/family oriented to hospital policies and general routines including ID bracelet, bed and alarms, visiting hours, pain management, procedures, bathroom and other care routines, personal items, smoking policy, room service/diet and guest tray routines, security routines, and visiting hours. Patient/Family are encouraged to report perceived risks to care and to ask questions if they do not understand what they are told or what they should do. See OBIX for further documentation.
[2022-04-23 18:09] LABS: Basophils Percent Auto 0.2 % (0.2-1.2); Eosinophils Percent Auto 0.2 % (0-4.4); Hematocrit 38.5 % (37.0-47.0); Immature Granulocyte Absolute 0.05 K/mm3 (0.00-0.031); Immature Granulocyte Percent A 0.5 % (0-0.5); Lymphocytes Absolute Auto 1.99 K/mm3 (0.9-3.2); Lymphocytes Percent Auto 21.8 % (18.3-44.2); Mean Corpuscular HGB Conc 33.8 g/dl (32-36); Mean Corpuscular Hemoglobin 30.5 pg (26-34); Mean Corpuscular Volume 90.4 fl (80-100); Mean Platelet Volume 10.9 fl (7.4-10.4); Monocytes Absolute Auto 0.6 K/mm3 (0.1-0.6); Monocytes Percent Auto 6.9 % (2.6-8.5); Neutrophils Absolute Auto 6.4 K/mm3 (1.3-6.7); Neutrophils Percent Auto 70.4 % (45.5-73.1); Platelet Count Result 180 k/mm3 (150-375); Red Blood Count 4.26 M/mm3 (4.2-5.4); White Blood Count 9.1 K/mm3 (4.5-10.0)
[2022-04-23 18:27] LABS: INR 0.9; Prothrombin Time 11.3 Seconds (11.1-14.7)
[2022-04-23 18:28] LABS: Partial Thromboplastin Time 24.4 SECONDS (22.3-36.8)
[2022-04-23 18:30] VITALS: RESP 14; TEMP 36.6
[2022-04-23 18:31] VITALS: BP 128/86; PULSE 83
[2022-04-23 19:16] LABS: Glucose Point of Care 68 mg/dl (65-105)
--- NOTE | 2022-04-23 19:22 | PHAR ---
Novolin N Flexpen U-100 3ml pen identified as brought in from home
[2022-04-23 20:22] LABS: Glucose Point of Care 101 mg/dl (65-105)
--- NOTE | 2022-04-23 21:27 | WPDANESEPP ---
Anes - Eval Pre Procedure Procedure: Labor epidural Date/Time: 04/23/22 21:27 Surgeon: Luis Preop Diagnosis: Abdominal pain with contractions Pre Op Diagnosis: IOL Patient Data Age: 36 Gender: F Height: Weight: Last Vital Signs Pulse 83 04/23/22 18:31 BP 128/86 04/23/22 18:31 O2 Del Method Room Air 04/23/22 17:54 Allergies Allergy/AdvReac Type Severity Reaction Status Date / Time No Known Allergies Allergy Verified 12/17/21 18:18 Home Medications Medication Instructions Recorded Confirmed Type enoxaparin 40 mg/0.4 mL 40 mg subcut DAILY 09/21/19 04/23/22 History subcutaneous syringe (Lovenox) cholecalciferol (vitamin D3) 125 125 mcg PO DAILY 12/06/19 04/23/22 History mcg (5,000 unit) tablet (Vitamin D3) folic acid 800 mcg tablet 0.8 mg PO DAILY 12/06/19 04/23/22 History loratadine 10 mg tablet (Claritin) 10 mg PO DAILY 12/06/19 04/23/22 History memqgtwllf-lsmdsausgnapu-tyzdorgm 2 cap PO Q4H PRN Headache #30 caps 12/31/19 04/23/22 Rx 50 mg-300 mg-40 mg capsule (Fioricet) insulin NPH isoph U-100 human 100 25 unit subcut HS 04/02/22 04/23/22 History unit/mL (3 mL) subcutaneous pen (Novolin N FlexPen) levothyroxine 75 mcg tablet 75 mcg PO DAILY 04/02/22 04/02/22 History (Synthroid) heparin (porcine) 5,000 unit/mL 10,000 unit subcut Q12H 04/23/22 04/23/22 History injection solution Laboratory Tests 04/23/22 04/23/22 04/23/22 17:25 17:25 17:25 WBC 9.1 K/mm3 K/mm3 (4.5-10.0) RBC 4.26 M/mm3 M/mm3 (4.2-5.4) Hgb 13.0 g/dL g/dL (12.0-15.0) Hct 38.5 % % (37.0-47.0) MCV 90.4 fl fl (80-100) MCH 30.5 pg pg (26-34) MCHC 33.8 g/dl g/dl (32-36) RDW 13.0 % % (11.5-14.5) Plt Count 180 k/mm3 k/mm3 (150-375) MPV 10.9 fl H fl (7.4-10.4) Immature Gran % (Auto) 0.5 % % (0-0.5) Neut % (Auto) 70.4 % % (45.5-73.1) Lymph % (Auto) 21.8 % % (18.3-44.2) [place] % (Auto) 6.9 % % (2.6-8.5) Eos % (Auto) 0.2 % % (0-4.4) Baso % (Auto) 0.2 % % (0.2-1.2) Lymph # (Auto) 1.99 K/mm3 K/mm3 (0.9-3.2) [place] # (Auto) 0.6 K/mm3 K/mm3 (0.1-0.6) Eos # (Auto) 0.0 K/mm3 K/mm3 (0-0.3) Baso # (Auto) 0.0 K/mm3 K/mm3 (0.0-0.1) Abs Immat Gran (auto) 0.05 K/mm3 H K/mm3 (0.00-0.031) Absolute Neuts (auto) 6.4 K/mm3 K/mm3 (1.3-6.7) Absolute Nucleated RBC 0.0 K/mm3 K/mm3 (0.0-0.012) Nucleated RBC % 0.0 % % (0.0-0.2) PT INR APTT POC Capillary Glucose RPR Pending Blood Type A Positive Antibody Screen Negative 04/23/22 04/23/22 04/23/22 17:26 19:12 20:18 WBC RBC Hgb Hct MCV MCH MCHC RDW Plt Count MPV Immature Gran % (Auto) Neut % (Auto) Lymph % (Auto) [place] % (Auto) Eos % (Auto) Baso % (Auto) Lymph # (Auto) [place] # (Auto) Eos # (Auto) Baso # (Auto) Abs Immat Gran (auto) Absolute Neuts (auto) Absolute Nucleated RBC Nucleated RBC % PT 11.3 Seconds Seconds (11.1-14.7) INR 0.9 APTT 24.4 SECONDS SECONDS (22.3-36.8) POC Capillary Glucose 68 mg/dl mg/dl 101 mg/dl mg/dl (65-105) (65-105) RPR Blood Type Antibody Screen : gestational age HCG: positive Patient hx anesthesia problems: none Family hx anesthesia problems: none Results Review: All pre-operative results and documents have been reviewed as part of the pre-operative evaluation. [facility] Past Med
[2022-04-23 22:00] VITALS: RESP 14; TEMP 36.8
[2022-04-23 23:31] VITALS: TEMP 36.6
[2022-04-23 23:33] VITALS: BP 123/79; PULSE 72
[2022-04-24] VITALS (58 sets, daily range): BP systolic 65–143; BP diastolic 24–99; PULSE 65–148; RESP 12–14; TEMP 36.4–36.7; O2SAT 97–100
[2022-04-24 05:02] LABS: Glucose Point of Care 83 mg/dl (65-105)
--- NOTE | 2022-04-24 07:10 | WPDOBADMIT ---
Obstetrics - Admit Note Admission Note: record reviewed. No pertinent additions to the history and/or any subsequent changes in the physical findings that are not consistent with the expected course of the were found. Additions to the history and/or subsequent changes in the physical findings follow. None.
--- NOTE | 2022-04-24 07:37 | PM.OBPNLAB ---
Pain Control Date/time seen: 04/24/22 07:35 Pain control: tolerating well Comments: Feeling occasional mild cramping Pelvic Exam Dilation (cm): 0 (outer os dilated 2cm and soft, internal os firm) Effacement (%): 50 station: -3 Amniotic membrane status: Intact Contractions Monitor mode: External Contraction pattern: Irregular Contraction intensity: Mild Status status: Category l Assessment and Plan Assessment: induction ongoing Comments: CNM at bedside. Bedside US performed. Fetus vertex and lowest presenting part is head. Discussed IOL process. Since internal OS remains closed, plan for sublingual cytotec. Discussed amniotomy at a future point as well as possibility of lawson balloon placement. Plan to reevaluate 4 hours after cytotec placement.
[2022-04-24] MEDS: miSOPROStol 25 MCG TABLET BY MOUTH (08:03)
[2022-04-24 10:40] LABS: Glucose Point of Care 71 mg/dl (65-105)
--- NOTE | 2022-04-24 12:14 | PM.OBPNLAB ---
Pain Control Date/time seen: 04/24/22 12:05 Pain control: tolerating well Comments: Feeling occasional mild cramping Pelvic Exam Dilation (cm): 0 (outer os dilated 2cm and soft, internal os fingertip dilated and more firm) Effacement (%): 60 station: -3 Amniotic membrane status: Intact Contractions Monitor mode: External Contraction pattern: Irregular Contraction intensity: Mild Status status: Category l Assessment and Plan Comments: CNM at bedside. Discussed next steps in induction process. Lisa reports that with her previous , it was necessary for her provider to break up scar tissue on her cervix. Her outer os is very soft and the internal os remains firm And finger tip. discussed option of placing Jose balloon for cervical dilation. Patient is agreeable to this. Also discussed augmenting with oxytocin or placing another Cytotec. Patient would like to not have Pitocin at this time. Jose balloon catheter placed through internal cervical os using stylet. Balloon inflated with 60 mL sterile saline. Stylet removed. Tubing secured patient's thigh with tape. Patient tolerated procedure very well plan sublingual Cytotec 25 mcg now.
[2022-04-24] MEDS: miSOPROStol 25 MCG TABLET PO (12:18)
[2022-04-24 14:20] LABS: Rapid Plasma Reagin Non-Reactive (NonReactive)
[2022-04-24 14:40] LABS: Glucose Point of Care 91 mg/dl (65-105)
--- NOTE | 2022-04-24 17:09 | P.PNOB_ITS ---
Pain Control Date/time seen: 04/24/22 1650 Pain control: tolerating well Comments: Feeling irregular cramping/contractions Pelvic Exam Dilation (cm): 5 (outer os dilated 2cm and soft, internal os fingertip dilated and more firm) Effacement (%): 60 station: -4 Amniotic membrane status: Intact Comments: head palpated but not well applied to cervix. Contractions Monitor mode: External Contraction pattern: Irregular Contraction intensity: Mild Status status: Category l Assessment and Plan Assessment: induction ongoing Comments: CNM At bedside. Recent SVE by RN with concern for not being able to feel presenting part. Another bedside ultrasound was performed. Presenting part verified as head. No cord visualized near the top of the head. SVE performed. Senior Database Engineer able to feel head at a very high station, at least -4, And ballotable. Discussed inability to perform amniotomy at this time with Lisa and her partner. Would recommend Pitocin be started. discussed with Lisa and RN recommendations for positions to allow for optimal descent. Will defer amniotomy until head well applied to cervix.
[2022-04-24] MEDS: LACTATED RINGERS 1,000 ML 125 ML IV CONT ×2 (17:15→23:02)
[2022-04-24] MEDS: OXYTOCIN 30 UNITS/NS 500 ML 30 UNITS/500 ML BAG IV CONT (17:15)
[2022-04-24 18:45] LABS: Glucose Point of Care 77 mg/dl (65-105)
[2022-04-24] MEDS: ACETAMINOPHEN 500 MG TABLET 1000 MG PO (19:15)
--- NOTE | 2022-04-24 20:39 | PM.OBPNLAB ---
Pain Control Date/time seen: 04/24/22 20:39 Pain control: tolerating well Pelvic Exam Dilation (cm): 5 (outer os dilated 2cm and soft, internal os fingertip dilated and more firm) Effacement (%): 60 station: -4 Amniotic membrane status: Intact Comments: head remains ballotable. Contractions Monitor mode: External Contraction frequency: 3 Contraction pattern: Irregular Contraction intensity: Mild Status status: Category l Assessment and Plan Pitocin rate (mU/min): 12 Plan: continuous present management Comments: Pt tolerating ctx well, frequently repositioning self. Up out of bed frequently and on ball. Ctx now becoming more frequent and regular. Instructed pt to call out for RN if she has SROM. Partner present and supportive. If head makes descent and is well applied to cervix, will plan amniotomy.
[2022-04-24 23:13] LABS: Glucose Point of Care 76 mg/dl (65-105)
[2022-04-25] VITALS (98 sets, daily range): BP systolic 108–134; BP diastolic 68–95; PULSE 59–142; RESP 16–18; TEMP 36.3–36.9; O2SAT 82–100
[2022-04-25 00:37] LABS: Glucose Point of Care 84 mg/dl (65-105)
[2022-04-25] MEDS: OXYTOCIN 30 UNITS/NS 500 ML 30 UNITS/500 ML BAG 125 UNITS IV CONT (03:38)
--- NOTE | 2022-04-25 04:17 | P.PCNOB_ITS ---
OB - Delivery Note Procedure Delivery date: 04/25/22 Procedure: Events: Gestational Diabetes and Other (Suspected LGA) Induction method: Per Misoprostol Protocol Delivery augmentation: Pitocin Delivery monitor: External FHT and External Uterine Route of delivery: Episiotomy description: None Laceration Description: Perineal - 2nd Degree Delivery repair: vicryl Specimen: Yes Quantitative Blood Loss (ml): 250 Anesthesia type: Epidural Disposition: Floor Narrative: Patient admitted at 39 weeks for induction of labor. Induction started with sublingual Cytotec. Patient also received Jose balloon and Pitocin. Membranes ruptured spontaneously and patient progressed to complete dilation. She pushed for a short time and brought the head to a crown. After the delivery of the head there was excellent restitution and easy delivery of the anterior and posterior shoulders. The remainder of the was delivered and placed on the maternal abdomen and dried and stimulated by the nursery team. After 1 minute of life, the cord was doubly clamped and cut. Cord blood and cord gases were obtained. Placenta delivered spontaneously in the Schultze presentation. A second-degree vaginal laceration was repared in the usual fashion. All delivery counts were correct. [place] Baby Date of : 04/25/22 Time of : 03:09 Weeks of gestation at delivery: 39 Infant gender: Male Weight (pounds): 8 Weight (ounces): 5 presentation: vertex position: Left Occiput Anterior Placenta delivery description: Spontaneous Cord Vessel Description: 3 Vessels, Clamped/Cut and Delayed Cord Clamping score one minute: 9 score five minutes: 9
--- NOTE | 2022-04-25 04:25 | PM.OBDSVD ---
DS: Admitting Diagnosis Discharge Date 04/26/22 Admitting Diagnosis 36 y.o. at 39 weeks GDMA2 LGA Hypothyroidism AMA Hx DVT to L leg in 2017- currently on heparin Uterine Fibroids First trimester US concerning for bandlike structure Proteinuria DS: Discharge Diagnosis Discharge Diagnosis (1) Hypothyroid: Code(s): E03.9 - Hypothyroidism, unspecified Status: Acute (2) History of DVT of lower extremity: Code(s): Z86.718 - Personal history of other venous thrombosis and embolism Status: Acute (3) (normal spontaneous vaginal delivery): Code(s): O80 - Encounter for full-term uncomplicated delivery Status: Acute (4) Mother currently breastfeeds: Status: Acute (5) GDM, class A2: Code(s): O24.419 - Gestational diabetes mellitus in , unspecified control Status: Acute OB - DS: Summary Hospital Course Hospital Course: Uncomplicated OB Procedures : NST, Ultrasound and Other (Lovenox/Heparin) OB Procedures Intrapartum: Spontaneous Vag Delivery OB Procedures: : None Peripartum Data Infant Delivery Method: Natural Vaginal Laceration Description: Perineal - 2nd Degree Episiotomy description: None complications: none Status at Discharge Overall status at discharge: patient is progressing back to baseline Time Spent with Patient Time attestation: Total time spent providing and/or coordinating discharge services: DS: Data Data Completed and Pending Labs on day of discharge: Labs from last 24 hours 04/25/22 04/24/22 04/24/22 00:30 22:36 18:21 POC Capillary Glucose 84 76 77 RPR 04/24/22 04/24/22 04/24/22 14:37 10:34 04:58 POC Capillary Glucose 91 71 83 RPR 04/23/22 17:25 POC Capillary Glucose RPR Non-reactive Discharge Plan Discharge Attending physician on discharge: Brandi Smith Discharging Clinician: Brandi Smith Anticipated Discharge Date/Time: 04/26/22 07:36 Patient Disposition: Home, Self-Care Activity: may shower Diet: as tolerated and regular Discharge Instructions: Education: Mom and Baby Guide Given to: Mother Follow-Up: Call your delivering provider's office for an appointment to be seen in: 6 Weeks Mom and baby should come to the [facility] for the follow-up appointment. Appointment Date/Time: Wednesday, April 27, 2022 at 8:00 a.m. What to expect at your follow-up visit: Blood Pressure Check Physical Assessment Call [phone] if you are unable to keep your appointment time. BREAST CARE: * Wear a snug supportive bra. * For engorgement discomfort: Breast Feeding: * Apply warm moist washcloths * Express milk as needed to relieve engorgement * Wear loose clothing * For sore nipples: * Identify correct latch-on * Apply warm moist washcloths before and after nursing * Air dry nipples after nursing * May apply Lansinoh cream to nipples EPISIOTOMY/PERINEAL CARE: * Until bleeding stops, use your kenyon bottle after urinating * Change your pad frequently throughout the day * You may take sitz baths several times a day (fill your bathtub with warm water and soak for 20 minutes.) Do NOT bathe in the water * No tub baths until seen by your physician - You may shower ACTIVITY: * Rest as much as possible. * Do not exercise or lift anything heavier than your baby (such as laundry or other children.) * Avoid stairs or driving as much as possible. * Do not put anything into the vagina. No douching, tampons, or sexual activity until seen by physician. NOTIFY PHYSICIAN IF YOU HAVE ANY QUESTIONS OR IF ANY OF THE FOLLOWING SYMPTOMS OCCUR: * If your perineum becomes red, swollen, or more painful than what you have experienced in the hospital. * If your vaginal bleeding becomes foul smelling. * If your vaginal bleeding becomes more
[2022-04-25] MEDS: WITCH HAZEL 40 PADS 1 PAD TOPICAL (05:49)
[2022-04-25] MEDS: BENZOCAINE 20% AER SPR (*SP) 56 GM CAN 1 SPRAY TOPICAL (05:49)
[2022-04-25] MEDS: LEVOTHYROXINE SODIUM 75 MCG TABLET PO (07:31)
[2022-04-25] MEDS: MULTIVIT/MIN/PREN/FOL AC/IRON TABLET 1 TAB PO (09:36)
[2022-04-25] MEDS: ACETAMINOPHEN 325 MG TABLET 650 MG PO ×3 (09:36→22:51)
[2022-04-25] MEDS: DOCUSATE SODIUM 100 MG CAPSULE PO ×2 (09:36→17:05)
[2022-04-25] MEDS: CHOLECALCIFEROL 1,000 UNITS TABLET 5000 UNITS PO (09:36)
[2022-04-25] MEDS: PROCHLORPERAZINE MALEATE 5 MG TABLET 10 MG PO (12:30)
--- NOTE | 2022-04-25 13:41 | OBPPTRN ---
1315-Patient transferred to post room #276 via wheelchair. Support person present. Oriented to unit, room, information board, rooming in, admission packet and security measures. Patient verbalizes understanding.
[2022-04-26 04:15] VITALS: BP 115/85; PULSE 87; RESP 16; TEMP 36.9
[2022-04-26 07:04] LABS: Hematocrit 36.5 % (37.0-47.0)
[2022-04-26 08:00] VITALS: BP 124/75; PULSE 77; RESP 18; TEMP 36.8; O2SAT 98
--- NOTE | 2022-04-26 08:40 | PM.OBPNVD ---
OB - PN: Subj Subjective Date/time seen: 04/26/22 08:40 Patient comments: no complaints and pain well controlled baby status: doing well OB - PN: Obj Data Labs 04/26/22 05:23 Labs: Laboratory Results - last 24 hr 04/26/22 05:23 Hgb 12.0 Hct 36.5 L OB - PN A/P Plan day: 1 Plan: routine care, discharge home, follow up 6 weeks and other (plans condoms until Liletta IUD) Time Spent With Patient Time: Total time spent is greater than 50% in coordination of care (as documented) at patient's floor/unit and/or counseling patient: Exam : Bimanual exam- vagina & uterus: other (Uterus firm, nt @U)
[2022-04-26] MEDS: CHOLECALCIFEROL 1,000 UNITS TABLET 5000 UNITS PO (10:43)
[2022-04-26] MEDS: ENOXAPARIN 40 MG/0.4 ML SYRINGE SUB-Q (10:43)
[2022-04-26] MEDS: LORATADINE 10 MG TABLET PO (10:44)
[2022-04-26] MEDS: MULTIVIT/MIN/PREN/FOL AC/IRON TABLET 1 TAB PO (10:44)
[2022-04-26] MEDS: DOCUSATE SODIUM 100 MG CAPSULE PO (10:44)
[2022-04-26] MEDS: ACETAMINOPHEN 325 MG TABLET 650 MG PO (10:55)
--- NOTE | 2022-04-26 14:53 | PC.NURSE ---
Patient viewed the discharge video Mother & Baby Care, The First Two Weeks . Patient was given the opportunity and encouraged to ask questions. Patient verbalized understanding of information shared and has been given the mother/baby guide for home reference.
[2022-04-27 08:23] VITALS: BP 134/73; PULSE 81; RESP 18; TEMP 36.6; O2SAT 99
== END 2022-04-26 15:28 | disposition home or self-care (01) | DRG 807 ==
LOC: ANHLDR 04-25 04:32 → ANHOB2 04-26 13:52 → ANHLDR 04-28 09:48 → ANHOB2 04-28 09:48 → ANHOBPP 04-28 09:48
PROVIDERS: Admitting Provider Obstetrics & Gynecology Gynecology; PCP Internal Medicine; Visit Provider Advanced Practice Midwife
DX: O99.284 Endocrine, nutritional and metabolic diseases complicating childbirth (principal); Z37.0 Single live birth; O70.1 Second degree perineal laceration during delivery; E03.9 Hypothyroidism, unspecified; O34.13 Maternal care for benign tumor of corpus uteri, third trimester; D25.9 Leiomyoma of uterus, unspecified; O24.429 Gestational diabetes mellitus in childbirth, unspecified control; Z3A.39 39 weeks gestation of pregnancy; Z86.718 Personal history of other venous thrombosis and embolism; Z79.01 Long term (current) use of anticoagulants
CPT/HCPCS: 36415; 82948; 85014; 85018; 85025; 85610; 85730; 86592; 86850; 86900; 86901; 88307; A9270; J1650; J2590; J2795; J7120